=== PATIENT | male | born 1990 | race Caucasian/White ===

== ENCOUNTER 2023-07-10 21:52 | Emergency (ER) | payer OTHER ==
[~2023-07-10] VITALS: Ht 165.1 cm; Wt 69.0 kg
[2023-07-10 22:17] VITALS: O2SAT 95
[2023-07-10] MEDS ORDERED: KETOROLAC 15MG/ML VIAL IM ONE (22:30)
[2023-07-10] MEDS ORDERED: DEXAMETHASONE 10 MG/ML VIAL PO ONE (23:00)
[2023-07-10] MEDS ORDERED: MED4 MT (23:13)
[2023-07-10 23:25] VITALS: BP 119/74; PULSE 93; RESP 16; TEMP 99.2
== END 2023-07-10 23:26 | disposition home or self-care (01) ==
LOC: ER 21:52
DX: J02.9 Acute pharyngitis, unspecified (principal); R50.9 Fever, unspecified; Z98.890 Other specified postprocedural states
CPT/HCPCS: 87430; 87070; 96372; 99283; J1100; J1885; Z7610